=== PATIENT | female | born 1995 | race Caucasian/White ===

== ENCOUNTER → 2017-04-01 | Outpatient (REF) ==
[~2017-04-01] MED LIST: WELLBUTRIN 100100 MG PO
== END ==
LOC: COL.ER 17:34
DX: T74.21XA Adult sexual abuse, confirmed, initial encounter (principal); Y07.59 Other non-family member, perpetrator of maltreatment and neglect; Y92.009 Unspecified place in unspecified non-institutional (private) residence as the place of occurrence of the external cause

== ENCOUNTER → 2017-04-01 | Emergency (ER) | payer SELFPAY ==
[~2017-04-01] VITALS: Ht 162.6 cm; Wt 76.4 kg
[2017-04-01 17:14] VITALS: BP 112/80; PULSE 63; TEMP 98
[2017-04-01 19:56] LABS: HIV 1/2 Antibodies Non-Reactive; HIV-1p24 Antigen Non-Reactive
[2017-04-02 20:24] LABS: HEPATITIS B SURFACE AB-QL Positive (()); HEPATITIS B SURFACE ANTIBODY 12.3 (())
== END ==
LOC: COL.ER 17:12
PROVIDERS: Emergency Medicine
DX: T74.21XA Adult sexual abuse, confirmed, initial encounter (principal); Y07.59 Other non-family member, perpetrator of maltreatment and neglect; Y92.009 Unspecified place in unspecified non-institutional (private) residence as the place of occurrence of the external cause
CPT/HCPCS: 86780; J0696

== ENCOUNTER 2018-07-24 15:37 | Emergency (ER) | payer BC ==
[~2018-07-24] VITALS: Ht 162.6 cm; Wt 67.3 kg
[2018-07-24 15:53] VITALS: TEMP 98.9
[2018-07-24] MEDS ORDERED: ADDERALL10 MG PO (17:16)
[2018-07-24] MEDS ORDERED: PROZAC 20MG20 MG PO (17:16)
[2018-07-24] MEDS ORDERED: AMOXICILLIN 8751 TAB PO (18:52)
[2018-07-24 19:06] VITALS: BP 116/83; PULSE 60
== END 2018-07-24 19:10 | disposition home or self-care (01) ==
LOC: COL.ER 15:37
DX: S51.851A Open bite of right forearm, initial encounter (principal); Z23 Encounter for immunization; W54.0XXA Bitten by dog, initial encounter; Y92.009 Unspecified place in unspecified non-institutional (private) residence as the place of occurrence of the external cause

== ENCOUNTER 2020-06-22 00:25 | Emergency (ER) | payer OTHER ==
[~2020-06-22] VITALS: Ht 152.4 cm; Wt 65.9 kg
[~2020-06-22 00:25] MED LIST changes: +ADDERALL10 MG PO; +AMOXICILLIN 8751 TAB PO; +PROZAC 20MG20 MG PO
[2020-06-22 00:49] LABS: BASO # 0.1 (0.0-0.2); BASO % 0.5 % (0.0-2.0); EOS # 0.1 (0.0-0.7); EOS % 1.3 % (0-4.0); GRAN # 4.4 (1.4-6.5); GRAN % 43.5 % (42.2-75.2); HEMATOCRIT 38.4 % (37.0-47.0); HEMOGLOBIN 13.2 g/dl (12.5-16.0); LYMPH # 4.8 (1.2-3.4); LYMPH % 47.5 % (20.0-51.0); MEAN CELL VOLUME 90 fl (80.0-100.0); MEAN CORPUSCULAR HEMOGLOBIN 31 pg (27.0-31.0); MEAN CORPUSCULAR HGB CONC 34 g/dl (33.0-37.0); MEAN PLATELET VOLUME 11.3 fl (7.4-10.4); MONO # 0.7 (0.1-0.6); PLATELET COUNT 230 K/mm3 (130-400); RED BLOOD COUNT 4.25 M/mm3 (4.10-5.30); REDCELL DISTRIBUTION WIDTH-CV 11.7 % (11.5-14.5)
[2020-06-22 00:56] LABS: ALCOHOL(ethanol),MEDICAL 266 mg/dL; ANION GAP 15 mmol/L (7-16); BLOOD UREA NITROGEN 19 mg/dL (7-17); CALCIUM 8.9 mg/dL (8.4-10.2); CARBON DIOXIDE 20 mmol/L (22-30); CHLORIDE 109 mmol/L (98-107); CREATININE, serum 0.72 (0.52-1.25); GLUCOSE 109 mg/dL (74-106); SODIUM 143 mmol/L (137-145)
[2020-06-22 00:59] LABS: ACETAMINOPHEN < 10 ug/mL (10-30); SALICYLATE < 1.0 mg/dL
[2020-06-22 01:01] LABS: POTASSIUM 2.7 mmol/L (3.4-5.0)
[2020-06-22 05:40] VITALS: BP 103/67; PULSE 82
== END 2020-06-22 05:40 | disposition home or self-care (01) ==
LOC: COL.ER 00:25
PROVIDERS: Emergency Medicine
DX: F10.129 Alcohol abuse with intoxication, unspecified (principal); E87.6 Hypokalemia; F17.290 Nicotine dependence, other tobacco product, uncomplicated
CPT/HCPCS: J2405; J3480; J7030